=== PATIENT | male | born 2000 | race American Indian/Alaskan Native ===

== ENCOUNTER 2023-11-30 17:21 | Emergency (ER) | payer BC, MEDICAID, OTHER | END 2023-11-30 19:05 | disposition home or self-care (01) | LOC: CC.ED 17:21 | DX: H11.31 Conjunctival hemorrhage, right eye (principal); M25.561 Pain in right knee; R51.9 Headache, unspecified; Y04.8XXA Assault by other bodily force, initial encounter; Y93.89 Activity, other specified | CPT/HCPCS: 70486; 73562-RT; 99284 ==